=== PATIENT | female | born 1985 | race Two or more races ===

== ENCOUNTER 2020-05-16 17:38 | Emergency (ER) | payer BC ==
[~2020-05-16] VITALS: Ht 167.6 cm; Wt 97.5 kg
--- NOTE | 2020-05-16 18:30 | NUR ---
PT PRESENTED TO THE ER WITH A C/O FEVER, NOT FEELING WELL, GENERALIZED BODY ACHES. PT WAS TRIAGED AND TAKEN TO ER 5. PT CHANGED INTO A GOWN AND WAS PLACED ON THE MONITOR /POX.
[2020-05-16] MEDS ORDERED: ACETAMINOPHEN ES 500 MG TABLET ONE (18:41)
[2020-05-16 18:58] LABS: BASOPHILS # (AUTO) 0.1 /CMM (0.0-0.2); BASOPHILS % (AUTO) 0.4 % (0.0-2.0); EOSINOPHILS % (AUTO) 2.2 % (0.0-6.0); HEMATOCRIT 32 % (33-45); HEMOGLOBIN 10.7 g/dL (11.5-14.8); LYMPHOCYTES # (AUTO) 1.8 /CMM (0.8-4.8); MEAN CORPUSCULAR HGB CONC 33 g/dl (31.0-36.0); MEAN CORPUSCULAR VOLUME 97 fL (82-100); MONOCYTES # (AUTO) 0.6 /CMM (0.1-1.30); NEUTROPHILS % (AUTO) 85.4 % (43.0-81.0); PLATELET COUNT (AUTO) 462 /CMM (150-450); RED BLOOD CELL COUNT(AUTO) 3.32 MIL/uL (4.0-5.2); WHITE BLOOD COUNT (AUTO) 19.9 K/uL (4.3-11.0)
[2020-05-16] MEDS ORDERED: ACETAMINOPHEN ES 500 MG TABLET PO ONE (19:00)
[2020-05-16] MEDS ORDERED: IV NS 0.9% 500 ML BAG IV ONE (19:00)
[2020-05-16 19:15] LABS: ALBUMIN 2.6 g/dL (3.4-5.0); BILIRUBIN,TOTAL 3.2 mg/dL (0.2-1.0); CALCIUM, SERUM 8.5 mg/dL (8.5-10.1); CREATININE 1.1 mg/dL (0.6-1.3); POTASSIUM 3.5 mmol/L (3.5-5.1); TOTAL PROTEIN, SERUM 7.3 g/dL (6.4-8.2)
[2020-05-16] MEDS ORDERED: IBUPROFEN 600 MG TABLET PO ONE ×2 (19:49→20:00)
--- NOTE | 2020-05-16 19:55 | NUR ---
PT'S TEMP IS 102.2F. NOTIFIED.
--- NOTE | 2020-05-16 20:14 | NUR ---
PT'S BROTHER CALLED AND IS STILL OUTSIDE. XIOMARA GOLDMAN'D AN UPDATE ON THE PT.
--- NOTE | 2020-05-16 20:31 | NUR ---
Chelle mann in ED - 05/16/20 at 2051 by [email or web address] PT RETURNED FROM CT.
--- NOTE | 2020-05-16 20:39 | NUR ---
PT AMBULATED AT THE BEDSIDE WITHOUT DIFFICULTY. PT STATED THAT HER MOUTH WAS DRY AND SHE HAD BODY ACHES. O2 SAT WAS BETWEEN 97-100% ON RA. NOTIFIED. ORAL TEMP 100.1F
[2020-05-16] MEDS ORDERED: PENICILLIN G BENZATHINE 2.4 MMU/4 ML ML IM ONE ×2 (21:26→21:30)
--- NOTE | 2020-05-16 21:46 | NUR ---
CALLED PT'S BROTHER WITH AN UPDATE.
--- NOTE | 2020-05-16 22:15 | NUR ---
CALLING LAB RPR TEST. MUST REORDER TEST.
--- NOTE | 2020-05-16 22:35 | NUR ---
SPOKE TO MIKE IN THE LAB RE: RPR ORDER SHOWING CANCELLED. LAB WILL FIX THAT IN THE COMPUTER. [facility] IS A SEND OUT AND THEY ARE CALLING THE COMPLIANCE PROJECT MANAGER FOR TRANSPORT TO [email or web address]). Christian WADE, PAC NOTIFIED.
--- NOTE | 2020-05-16 23:08 | NUR ---
IV removed. Catheter intact and site benign. Pressure and 4x4 applied to site. No bleeding noted. Patient discharged to home in stable condition. Written and verbal after care instructions given. Patient verbalizes understanding of instruction AND RX. PT AMBULATED OUT WITH A STEADY GAIT. VSS. PT'S BROTHER IS OUTSIDE AND IS DRIVING THE PT HOME.
--- NOTE | 2020-05-16 23:09 | NUR ---
CALLING PT'S BROTHER TO LET HIM KNOW PT WAS DISCHARGED.
[2020-05-16 23:41] VITALS: BP 95/55
== END 2020-05-16 23:41 | disposition home or self-care (01) ==
LOC: ER 17:43
DX: R21 Rash and other nonspecific skin eruption (principal); R05 Cough; R50.9 Fever, unspecified; Z20.828 Contact with and (suspected) exposure to other viral communicable diseases
CPT/HCPCS: 36415; 71045; 80053; 85025; 85730; 86592; 96372; 99285; C9803; J0558; J7040; U0003

== ENCOUNTER 2020-05-22 10:38 | Emergency (ER) | payer BC ==
[~2020-05-22] VITALS: Ht 162.6 cm; Wt 68.0 kg
[2020-05-22] MEDS: IV NS 0.9% 1,000 ML IV ONE (11:00)
[2020-05-22] MEDS: ONDANSETRON HCL/PF 4 MG/2 ML VIAL IV ONE (11:00)
--- NOTE | 2020-05-22 11:00 | NUR ---
patient came in to the er c/o sob and body aches. On room air, breathing evenly and unlabored. connected to the monitor and pulse ox. kept comfortable, will continue to monitor accordingly.
[2020-05-22] MEDS ORDERED: ONDANSETRON HCL/PF 4 MG/2 ML VIAL ONE (11:01)
[2020-05-22] MEDS ORDERED: ACETAMINOPHEN ES 500 MG TABLET ONE (11:02)
[2020-05-22 11:13] LABS: BASOPHILS # (AUTO) 0.1 /CMM (0.0-0.2); BASOPHILS % (AUTO) 0.7 % (0.0-2.0); EOSINOPHILS % (AUTO) 2.6 % (0.0-6.0); HEMATOCRIT 29 % (33-45); HEMOGLOBIN 9.7 g/dL (11.5-14.8); LYMPHOCYTES # (AUTO) 1.6 /CMM (0.8-4.8); MEAN CORPUSCULAR HGB CONC 33 g/dl (31.0-36.0); MEAN CORPUSCULAR VOLUME 98 fL (82-100); MONOCYTES # (AUTO) 0.7 /CMM (0.1-1.30); MONOCYTES % (AUTO) 3.2 % (2.0-12.0); NEUTROPHILS # (AUTO) 17.4 /CMM (1.8-8.9); NEUTROPHILS % (AUTO) 85.5 % (43.0-81.0); PLATELET COUNT (AUTO) 683 /CMM (150-450); RED BLOOD CELL COUNT(AUTO) 2.98 MIL/uL (4.0-5.2); WHITE BLOOD COUNT (AUTO) 20.3 K/uL (4.3-11.0)
[2020-05-22] MEDS: ACETAMINOPHEN ES 500 MG TABLET PO ONE (11:13)
[2020-05-22 11:17] LABS: APPEARANCE,URINE Clear (CLEAR); BILIRUBIN,URINE SMALL (NEGATIVE); BLOOD, URINE Negative Ery/uL (NEGATIVE); COLOR,URINE Yellow (YELLOW); KETONES,URINE Negative (NEGATIVE); LEUKOCYTE ESTERASE ,URINE Small (NEGATIVE); NITRITE, URINE Negative (NEGATIVE); PROTEIN,URINE Negative (NEGATIVE); UGLUCOSE Negative (NEGATIVE)
[2020-05-22 11:18] LABS: BACTERIA,URINE Few /HPF (None Seen); SQUAMOUS EPITHELIAL CELL,UR Few /HPF (None Seen)
[2020-05-22 11:21] LABS: CALCIUM, SERUM 9.1 mg/dL (8.5-10.1); POTASSIUM 3.8 mmol/L (3.5-5.1)
[2020-05-22 12:18] VITALS: BP 121/71
--- NOTE | 2020-05-22 12:19 | NUR ---
Patient discharged to home in stable condition. Written and verbal after care instructions given. Patient verbalizes understanding of instruction.IV removed. Catheter intact and site benign. Pressure and 4x4 applied to site. No bleeding noted.
== END 2020-05-22 12:19 | disposition home or self-care (01) ==
LOC: ER 10:40
DX: B34.9 Viral infection, unspecified (principal); R21 Rash and other nonspecific skin eruption; D72.829 Elevated white blood cell count, unspecified; N39.0 Urinary tract infection, site not specified; Z60.2 Problems related to living alone
CPT/HCPCS: 36415; 71045; 80048; 81001; 84703; 85025; 96374; 99284; J2405; J7030; 81000-TC

== ENCOUNTER 2020-05-27 11:14 | Emergency (ER) | payer BC ==
[~2020-05-27] VITALS: Ht 162.6 cm; Wt 68.2 kg
[2020-05-27] MEDS ORDERED: IV NS 0.9% 1,000 ML BAG IV ONE (11:30)
[2020-05-27 11:40] LABS: BASOPHILS # (AUTO) 0.1 /CMM (0.0-0.2); BASOPHILS % (AUTO) 0.8 % (0.0-2.0); EOSINOPHILS % (AUTO) 2.9 % (0.0-6.0); HEMATOCRIT 29 % (33-45); HEMOGLOBIN 9.8 g/dL (11.5-14.8); LYMPHOCYTES # (AUTO) 2.9 /CMM (0.8-4.8); LYMPHOCYTES % (AUTO) 18.3 % (20.0-44.0); MEAN CORPUSCULAR HGB CONC 33 g/dl (31.0-36.0); MEAN CORPUSCULAR VOLUME 97 fL (82-100); MONOCYTES # (AUTO) 0.6 /CMM (0.1-1.30); NEUTROPHILS # (AUTO) 11.7 /CMM (1.8-8.9); PLATELET COUNT (AUTO) 849 /CMM (150-450); RED BLOOD CELL COUNT(AUTO) 3.05 MIL/uL (4.0-5.2); WHITE BLOOD COUNT (AUTO) 15.8 K/uL (4.3-11.0)
--- NOTE | 2020-05-27 11:40 | NUR ---
BIBS TO ER BED 12. AAOX4. NOT IN RESP DISTRESS. AMBULATORY. ANXIOUS. CAME IN FOR R SIDED ABDOMEN THAT HAS BEEN GOING ON FOR THE PAST FEW WEEK. DENIES NAUSEA NOR VOMMITING. PT C/O R LEG PAIN. PT STATES SHE THINKS SHE GOT HERMILA [place] [employer]. WAS AT THE BEDSIDE FOR EVAL. ORDERS RECEIVED NOTED AND CARRIED OUT. IV LINE TO THE R AC 20G. BLOOD DRAWN AND GIVEN TO VICE PRESIDENT RISK MANAGEMENT. URINE SENT TO LAB. PT TO CT ON WHEELCHAIR.
[2020-05-27 11:48] LABS: CALCIUM, SERUM 9.3 mg/dL (8.5-10.1); CREATININE 1.1 mg/dL (0.6-1.3); POTASSIUM 4.2 mmol/L (3.5-5.1)
[2020-05-27 11:52] LABS: APPEARANCE,URINE Clear (CLEAR); BILIRUBIN,URINE Negative (NEGATIVE); BLOOD, URINE Negative Ery/uL (NEGATIVE); COLOR,URINE Yellow (YELLOW); KETONES,URINE Negative (NEGATIVE); LEUKOCYTE ESTERASE ,URINE Small (NEGATIVE); NITRITE, URINE Negative (NEGATIVE); PROTEIN,URINE Negative (NEGATIVE); UGLUCOSE Negative (NEGATIVE); UROBILINOGEN,URINE 0.2 EU/dL (0.2)
[2020-05-27 11:54] LABS: BACTERIA,URINE Few /HPF (None Seen); RBC,URINE 0-2 /HPF (0-2); SQUAMOUS EPITHELIAL CELL,UR Many /HPF (None Seen)
[2020-05-27] MEDS ORDERED: MORPHINE SULFATE INJ 2 MG/ML DISP.SYRIN IV ONE (12:00)
[2020-05-27] MEDS ORDERED: ONDANSETRON HCL/PF 4 MG/2 ML VIAL IV ONE (12:00)
[2020-05-27] MEDS ORDERED: IV NS 0.9% 1,000 ML IV ONE (12:00)
[2020-05-27 12:03] LABS: ALBUMIN 2.4 g/dL (3.4-5.0); BILIRUBIN,DIRECT 0.5 mg/dL (0.0-0.2); BILIRUBIN,TOTAL 0.7 mg/dL (0.2-1.0); TOTAL PROTEIN, SERUM 7.8 g/dL (6.4-8.2)
[2020-05-27] MEDS ORDERED: ONDANSETRON HCL/PF 4 MG/2 ML VIAL ONE (12:04)
[2020-05-27] MEDS ORDERED: MORPHINE SULFATE INJ 4 MG/ML DISP.SYRIN ONE (12:04)
[2020-05-27] MEDS ORDERED: FAMOTIDINE/PF INJ 20 MG/2 ML VIAL IV ONE ×2 (13:00→13:47)
[2020-05-27] MEDS ORDERED: LIDOCAINE VISCOUS 2% UD 15 ML UDC MM ONE (13:00)
[2020-05-27] MEDS ORDERED: MAG HYDROX/AL HYDROX/SIMETH 30 ML UDC PO ONE (13:00)
[2020-05-27] MEDS ORDERED: LIDOCAINE VISCOUS 2% UD 15 ML UDC ONE (13:45)
[2020-05-27] MEDS ORDERED: MAG HYDROX/AL HYDROX/SIMETH 30 ML UDC ONE (13:45)
--- NOTE | 2020-05-27 14:34 | NUR ---
Patient discharged to home in stable condition. Written and verbal after care instructions given. Patient verbalizes understanding of instruction.IV removed. Catheter intact and site benign. Pressure and 4x4 applied to site. No bleeding noted. Pt ambulatory with a steady gait
--- NOTE | 2020-05-27 14:43 | NUR ---
IV removed. Catheter intact and site benign. Pressure and 4x4 applied to site. No bleeding noted. Patient discharged to home in stable condition. Written and verbal after care instructions given. Patient verbalizes understanding of instruction.
[2020-05-27 14:44] VITALS: BP 125/63
== END 2020-05-27 14:44 | disposition home or self-care (01) ==
LOC: ER 11:14
DX: R10.13 Epigastric pain (principal); R10.11 Right upper quadrant pain; K76.0 Fatty (change of) liver, not elsewhere classified; R74.0 Nonspecific elevation of levels of transaminase and lactic acid dehydrogenase [LDH]; D72.829 Elevated white blood cell count, unspecified; D64.9 Anemia, unspecified; R21 Rash and other nonspecific skin eruption; Z60.2 Problems related to living alone
CPT/HCPCS: 36415; 74176; 76705; 80048; 80076; 81001; 83690; 84703; 85025; 87086; 96374; 96375; 99285; J2270; J2405; J3490; J7030 ×2; 81000-TC